=== PATIENT | male | born 1935 | race Caucasian/White ===

== ENCOUNTER 2019-03-04 09:04 | Outpatient (CLI) | payer MEDICARE, OTHER ==
[2019-03-04 13:02] LABS: Hemoglobin 15.2 g/dL (14.0-18.0); Mean Corpuscular HGB CONC 33.7 g/dL (32.0-36.0); Mean Corpuscular Hemoglobin 33.1 pg (27.0-31.0); Mean Corpuscular Volume 98.2 fL (78.0-98.0); Platelet Count 139 thou/uL (130-400); RBC Distribution Width 13.6 % (11.5-14.5); White Blood Cell (WBC) Count 5.3 thou/uL (4.8-10.8)
[2019-03-04 13:21] LABS: Anion Gap 12 mmol/L (10-20); BUN (Urea Nitrogen) 21 mg/dL (8.4-25.7); Calc. Creatinine Clearance 0 mL/min (70-130); Calcium 9.1 mg/dL (7.8-10.44); Carbon Dioxide 23 mmol/L (23-31); Chloride 110 mmol/L (98-107); Estimated GFR-MDRD 67; Glucose 102 mg/dL (83-110); Potassium 4.3 mmol/L (3.5-5.1); Sodium 141 mmol/L (136-145)
== END 2019-03-04 09:05 | disposition home or self-care (01) ==
LOC: LABBT 09:04
PROVIDERS: ATTEND Thoracic Surgery (Cardiothoracic Vascular Surgery)
DX: Z01.812 Encounter for preprocedural laboratory examination (principal); I25.10 Atherosclerotic heart disease of native coronary artery without angina pectoris
CPT/HCPCS: 80048; 85027; 86850; 86900; 86901

== ENCOUNTER 2019-03-04 12:00 | Inpatient (IN) | payer MEDICARE, OTHER ==
[2019-03-05] MEDS ORDERED: Albumin 5% 500 ML ONE (06:28)
[2019-03-05] MEDS ORDERED: Midazolam HCl 5 mg/5 ml Vial ONE (06:39)
[2019-03-05] MEDS ORDERED: Fentanyl 250 MCG/5 ML VIAL ONE (06:39)
[2019-03-05] MEDS ORDERED: Heparin 10,000 UNITS/1 ML VIAL 30,000 UNITS in Sodium Chloride 0.9% 1,000 ML IVPB SCH (06:45)
[2019-03-05] MEDS ORDERED: Phenylephrine HCL 10 MG/ML VIAL ONE ×2 (08:52→13:07)
[2019-03-05] MEDS ORDERED: Insulin Regular 300 UNITS/3 ML VIAL ONE (09:53)
[2019-03-05] MEDS ORDERED: Rocuronium Bromide 10 MG/ML (10ML VIAL) ONE ×2 (10:41→10:53)
[2019-03-05] MEDS ORDERED: Magnesium 5 GM/10 ML VIAL ONE (10:41)
[2019-03-05] MEDS ORDERED: Protamine Sulfate 250 MG/25 ML VIAL ONE (10:41)
[2019-03-05] MEDS ORDERED: Aminocaproic Acid 5 GM/20 ML VIAL ONE (10:41)
[2019-03-05] MEDS ORDERED: Lidocaine 2% PF 100 mg/5 ml Syringe ONE (10:41)
[2019-03-05] MEDS ORDERED: Heparin 5,000 UNITS/ML VIAL ONE (10:41)
[2019-03-05] MEDS ORDERED: Papaverine 60 MG/2 ML VIAL ONE (10:41)
[2019-03-05] MEDS ORDERED: PHENYLEPHRINE-NS 100 MCG/ML 10 ML SYRINGE ONE ×2 (10:41→10:53)
[2019-03-05] MEDS ORDERED: Calcium Chloride 1 GM/10 ML Abboject SYRINGE ONE (10:41)
[2019-03-05] MEDS ORDERED: Glycopyrrolate 0.2 MG/ML 5 ML SYRINGE ONE (10:41)
[2019-03-05] MEDS ORDERED: Norepinephrine 4 MG/4 ML VIAL ONE (10:41)
[2019-03-05] MEDS ORDERED: Cardioplegic Soln 1,000 ML BAG ONE (10:41)
[2019-03-05] MEDS ORDERED: Sodium Bicarb 50 MEQ/50 ML VIAL ONE (10:41)
[2019-03-05] MEDS ORDERED: Thrombin 5000 UNITS/5 ML VIAL ONE (10:41)
[2019-03-05] MEDS ORDERED: PROPOFOL 200 MG/20 ML VIAL ONE ×2 (10:41→10:53)
[2019-03-05] MEDS ORDERED: Heparin 30,000 units/30 ml VIAL ONE ×2 (10:41)
[2019-03-05] MEDS ORDERED: Potassium Chloride 60 MEQ/30 ML VIAL ONE (10:41)
[2019-03-05] MEDS ORDERED: Vecuronium 10 MG VIAL ONE (10:41)
[2019-03-05] MEDS ORDERED: Nitroglycerin 50 MG/250 ML BOT ONE (10:41)
[2019-03-05] MEDS ORDERED: Mannitol 12.5 GM/50 ML ONE (10:41)
[2019-03-05] MEDS ORDERED: ePHEDrine 50 MG/ML VIAL ONE (10:41)
[2019-03-05] MEDS ORDERED: SUGAMMADEX SODIUM 200 MG/2 ML VIAL ONE (11:27)
[2019-03-05] MEDS ORDERED: Norepinephrine 8 MG/0.9% NS 250 ML IVPB PRN ×2 (12:09→15:09)
[2019-03-05] MEDS ORDERED: HYDROcodone/Acetaminophen 5/325 mg Tablet PO PRN ×2 (12:09)
[2019-03-05] MEDS ORDERED: Acetaminophen 325 MG TAB PO PRN (12:09)
[2019-03-05] MEDS ORDERED: Promethazine HCl 25 MG/ML VIAL IM PRN (12:09)
[2019-03-05] MEDS ORDERED: niCARdipine 25 MG in Sodium Chloride 0.9% 250 ML 240 ML IVPB PRN (12:09)
[2019-03-05] MEDS ORDERED: Bisacodyl 5 MG TAB PO PRN (12:09)
[2019-03-05] MEDS ORDERED: Nitroglycerin 50 MG/250 ML BOT 250 ML IVPB PRN (12:09)
[2019-03-05] MEDS ORDERED: hydrALAZINE 20 MG/ML VIAL SLOW IVP PRN (12:09)
[2019-03-05] MEDS ORDERED: Post-Op Insulin Drip Protocol IVPB ONE (12:09)
[2019-03-05] MEDS ORDERED: Fentanyl 100 MCG/2 ML VIAL SLOW IVP PRN ×2 (12:09)
[2019-03-05] MEDS ORDERED: Hetastarch 6% 500 ML 500 ML IVPB PRN (12:09)
[2019-03-05] MEDS ORDERED: Morphine 2 MG/ML SYRINGE SLOW IVP PRN ×2 (12:09→14:58)
[2019-03-05] MEDS ORDERED: Ondansetron PF 4 MG/2 ML Vial IVP PRN (12:09)
[2019-03-05] MEDS ORDERED: Mag-Al 1200 mg/1200 mg/30 ML UDCUP PO PRN (12:09)
[2019-03-05] MEDS ORDERED: Guaifenesin DM 100-10/5 ML UDCUP PO PRN (12:09)
[2019-03-05] MEDS ORDERED: Bisacodyl 10 MG SUPP PR PRN (12:09)
[2019-03-05] MEDS ORDERED: DOPamine 400 MG/D5W 250 ML 250 ML IVPB PRN (12:09)
[2019-03-05] MEDS ORDERED: Fentanyl 100 MCG/2 ML VIAL SLOW IVP SCH (12:15)
[2019-03-05] MEDS ORDERED: Magnesium 2 GM/50 ML 2 GM in Premix Bag 1 BAG IVPB SCH (12:15)
[2019-03-05] MEDS ORDERED: Midazolam HCl 2 mg/2 ml Vial IVP SCH (12:15)
[2019-03-05] MEDS ORDERED: Dextrose 50% Abboject 50 ML SYRINGE SLOW IVP PRN (12:21)
[2019-03-05] MEDS ORDERED: Dextrose 5% in Water 1,000 ML IV PRN (12:21)
[2019-03-05] MEDS ORDERED: HUMULIN R 100 UNITS in Sodium Chloride 0.9% 100 ML IVPB SCH (12:21)
[2019-03-05] MEDS ORDERED: Midazolam HCl 2 mg/2 ml Vial ONE (12:26)
[2019-03-05 12:30] LABS: #Eosinphils 0.1 thou/uL (0.0-0.7); #Lymphocytes 1.6 thou/uL (1.20-3.40); #Monocytes 1.2 thou/uL (0.11-0.59); #Neutrophils 12.4 thou/uL (1.40-6.50); %Basophils 0.1 % (0.0-1.0); %Eosinophils 0.5 % (0.0-10.0); %Lymphocytes 10.5 % (21.0-51.0); %Monocytes 7.6 % (0.0-10.0); %Neutrophils 81.4 % (42.0-75.0); Hemoglobin 11.7 g/dL (14.0-18.0); Mean Corpuscular HGB CONC 33.2 g/dL (32.0-36.0); Mean Corpuscular Volume 99.2 fL (78.0-98.0); Platelet Count 99 thou/uL (130-400); RBC Distribution Width 13.6 % (11.5-14.5); Red Blood Cell (RBC) Count 3.56 mill/uL (4.70-6.10); White Blood Cell (WBC) Count 15.2 thou/uL (4.8-10.8)
[2019-03-05 12:36] LABS: INR-International Normal Ratio 1.3; Prothrombin Time 16.2 SEC (12.0-14.7)
[2019-03-05 12:37] LABS: PTT 29.5 SEC (22.9-36.1)
[2019-03-05] MEDS: CEFAZOLIN 2 GM in Premix Bag 1 BAG IVPB SCH ×2 (12:45→20:33)
[2019-03-05] MEDS: Ketorolac Tromethamine 30 MG/ML VIAL IVP SCH ×3 (12:46→23:33)
--- NOTE | 2019-03-05 12:48 | RAD ---
RADIOGRAPH CHEST 1 VIEW: DATE: 03/05/2019 HISTORY: Status post coronary bypass graft surgery in 83-year-old male FINDINGS: Limited evaluation because of hypoinflated lungs and patient body rotation to left. There is no airsp soun density, pulmonary edema, or pneumothorax. The lateral costophrenic angles are not effaced. Right subclavian central vascular catheter with distal tip overlying SVC/right atrial junction. Media stinal chest tube. Sternotomy wires. Bibasilar chest tubes. IMPRESSION: 1. Status post coronary artery bypass graft surgery. 2. Right central line, and bibasilar and midline chest tubes.. 3. No acute pulmonary findings.
[2019-03-05] MEDS ORDERED: PROPOFOL 20 ML ONE (12:50)
[2019-03-05] MEDS ORDERED: Fentanyl 100 MCG/2 ML VIAL ONE (13:04)
[2019-03-05] MEDS ORDERED: Dexmedetomidine 200 MCG/2 ML VIAL ONE (13:04)
[2019-03-05 13:08] LABS: Anion Gap 11 mmol/L (10-20); BUN (Urea Nitrogen) 29 mg/dL (8.4-25.7); Calc. Creatinine Clearance 76 mL/min (70-130); Calcium 7.6 mg/dL (7.8-10.44); Carbon Dioxide 21 mmol/L (23-31); Chloride 115 mmol/L (98-107); Estimated GFR-MDRD 71; Glucose 155 mg/dL (83-110); Potassium 4.5 mmol/L (3.5-5.1); Sodium 142 mmol/L (136-145)
[2019-03-05] MEDS ORDERED: CEFAZOLIN 1 GM VIAL ONE (13:19)
[2019-03-05] MEDS ORDERED: Fentanyl BOLUS 250 ML IVPB PRN (14:58)
[2019-03-05] MEDS ORDERED: fentaNYL Citrate/PF 2,000 MCG in Sodium Chloride 0.9% 60 ML IV SCH (14:58)
[2019-03-05] MEDS ORDERED: Propofol 1,000 MG/100 ML VIAL IV PRN (14:58)
[2019-03-05] MEDS ORDERED: DISCONTINUE PREVIOUS NARCOTIC PAIN MEDICATIONS AND BENZODIAZEPINES FS SCH (14:58)
[2019-03-05] MEDS ORDERED: Propofol BOLUS 1,000 MG/100 ML VIAL IV PRN (14:58)
[2019-03-05] MEDS ORDERED: Lorazepam 2 MG/ML VIAL SLOW IVP PRN (14:58)
[2019-03-05] MEDS ORDERED: Ventilator Sedation Protocol 1 EACH FS SCH (15:00)
[2019-03-05] MEDS ORDERED: Albumin 5% 250 ML ONE (15:07)
[2019-03-05] MEDS: Lactated Ringer's 1,000 ML IV SCH (15:19)
--- NOTE | 2019-03-05 15:19 | RAD ---
Exam: Chest one view HISTORY:Status post open heart surgery Comparison: 03/05/2019 at 12:28 PM FINDINGS: Cardiac silhouette:Enlarged cardiac silhouette. Atherosclerosis of the aorta Pulmonary vessels: Slightly prominent. Costophrenic angles: Clear Lines and tubes: Endotracheal tube at the level of clavicles. Right-sided central venous catheter and sternotomy wires are noted. There is a right-sided chest tube. LUNGS: Patchy interstitial opacities without consolidation. Pneumothorax: None Osseous abnormalities: None IMPRESSION: 1. Findings compatible with recent open.
[2019-03-05 15:32] LABS: Actual Bicarbonate (HCO3a) 21.6 mEq/L (22-28); Base Excess (BEa) -4.7 mEq/L (-2.0 to +3.0); CO2 Tension 45.4 mmHg (35.0-45.0); Calcium, Ionized 1.04 mmol/L (1.12-1.30); Carboxyhemoglobin (COHb) 0.9 gm% (0.0-3.0); O2 Tension (PaO2) 86.9 mmHg (> 60.0); Potassium - ABG Lab 4.26 mmol/L (3.70-5.30)
[2019-03-05 15:45] LABS: Puncture Site LINE
--- NOTE | 2019-03-05 16:03 | OP ---
DATE OF PROCEDURE: 03/05/2019 PREOPERATIVE DIAGNOSIS: Hemorrhage. POSTOPERATIVE DIAGNOSIS: Hemorrhage. PROCEDURES PERFORMED: Mediastinal exploration, oversew of bleeding site. CLIENT SUPPORT ADMINISTRATOR: Shamir. TRANSFUSION: One platelet pack, 2 units of fresh frozen. DESCRIPTION OF PROCEDURE: After adequate general endotracheal anesthesia had once been obtained, the patient was prepped and draped and his sternotomy incision open. Clots were evacuated and the heart was elevated and there was bleeding from the distal OM graft to OM anastomosis. This had been the site of the bleeding site prior to leaving the room that had been secured and had no further bleeding. Pmlavu-ir-hzsay suture was then used to control the bleeding and following this, the areas were all thoroughly inspected and irrigated. Right coronary graft lie nicely with good pulse. The AVILA graft was a good pulse and the OM1 vein graft had a good pulse. I am not sure if the OM2 graft was patent or not. In any event, the sternum was reapproximated with combination of #7 interrupted wire and zip ties using vancomycin paste on the sternal edges. Subcutaneous tissue and skin were closed in layers after further irrigation and the patient is to be taken to the ICU in guarded condition. Job ID: [id number]
[2019-03-05] MEDS ORDERED: Norepinephrine 8 MG in Dextrose 5% in Water 242 ML IVPB PRN (16:30)
--- NOTE | 2019-03-05 17:28 | OP ---
DATE OF PROCEDURE: 03/05/2019 PREOPERATIVE DIAGNOSIS: Coronary artery disease. POSTOPERATIVE DIAGNOSIS: Coronary artery disease. PROCEDURE PERFORMED: Coronary artery bypass graft x4; good quality AVILA to a 2 mm LAD; saphenous vein that required multiple Prolene sutures for repair to a 1.5 mm PDA, 1.5 mm OM1, and 1.25 mm OM2; ligation of left atrial appendage. ETL APPLICATION DEVELOPER: John Mcdermott MD DESCRIPTION OF PROCEDURE: After adequate anesthesia had been obtained, the patient was prepped and draped. Median sternotomy was performed while an endovascular vein harvest on the left greater saphenous vein was carried out. After opening the sternum, the right pleura had been entered and was partially closed. Following which, the left internal mammary artery was harvested. After heparinization, the mammary was divided distally and passed posterior to the thymus gland. Aorta and right atrium were cannulated. At that point, the operation was somewhat delayed due to multiple repairs needed to be carried out on the vein. After this had been completed, the patient was started on cardiopulmonary bypass and vessels were inspected. It should be noted that while waiting for the saphenous vein graft to be prepared, the patient had several episodes of spontaneous supraventricular tachycardia. Because of this, it was elected to go ahead and ligate his left atrial appendage, and after a liter of cold blood cardioplegia had been given through the aortic root after aortic cross-clamping, the left atrial appendage was oversewn with a double layer of 4-0 Prolene at its base. The patient was noted to be in fibrillation after this and an additional 300 mL of cold blood cardioplegia was given. Following this, the main right coronary artery was examined and was heavily calcified and a spot on the PDA was then chosen and it was opened. There was rather vigorous bleeding through this arteriotomy making the distal anastomosis somewhat tedious, but this was completed. Following this, attention was turned to the OM1 and OM2 and both of these had end-to-side anastomosis completed. Finally, a AVILA to LAD was completed and the cross-clamp was removed. The partial occluding clamp was placed and two proximal anastomosis were performed of the aortic root. The partial occluding clamp was removed and rings were placed around the two proximal anastomosis. The OM2 vein graft was then anastomosed to the OM1 vein graft about 3 cm from the aortic root. Following this, there was a rather vigorous bleeding site on the OM2 suture line near the heel distal anastamoses and this was repaired with a mbxjwh-sw-xgmfj suture. There was diffuse oozing from the distal PDA site and two raylra-kb-nyfah sutures were placed here for control. The patient had rather significant oozing in the chest at that time and was therefore ventilated, weaned from cardiopulmonary bypass, cannula was removed, and protamine was given systemically. Aortic cannulation site was secured with a Prolene suture. Following this, inspection of the distal anastomosis revealed no further bleeding. Mediastinal and bilateral pleural drains were placed, following which the sternum was reapproximated with #7 interrupted wire. Vancomycin paste was placed on the sternal edges, platelet rich blood, and platelet poor plasma. The patient is to be taken to the ICU in guarded condition. Job ID: [id number] MTDD
--- NOTE | 2019-03-05 18:13 | PRG ---
DATE OF SERVICE: 03/05/2019 PRIMARY POLE SANDER OPERATOR: Dr. Yao Rivera. HISTORY OF PRESENT ILLNESS: Mr. Fer Amezcua is a pleasant 83-year-old gentleman with moderately depressed left ventricular function and multivessel coronary artery disease, who underwent bypass surgery. The patient did have to go back to the operating room earlier this afternoon for mediastinal exploration and oversew of bleeding site, but the patient is doing well now. He is currently sedated, is on the ventilator. OBJECTIVE: VITAL SIGNS: His blood pressure is 120 systolic, pulse is in the 90 range and sinus. LUNGS: Clear. CARDIAC: Normal S1 and normal S2. ASSESSMENT: 1. Status post coronary artery bypass grafting with subsequent reoperation and repair of bleeding site, bypass x4. 2. Ligation of left atrial appendage. PLAN: Continue current medical regimen. Dr. Rivera to see the patient tomorrow morning. Job ID: [id number]
[2019-03-05 18:28] LABS: Hemoglobin 9.5 g/dL (14.0-18.0)
[2019-03-05 18:38] LABS: Potassium 4.6 mmol/L (3.5-5.1)
[2019-03-05] MEDS: Atorvastatin Calcium 20 MG TAB PO SCH (20:33)
[2019-03-05] MEDS: Famotidine/PF 20 mg/2ml Vial SLOW IVP SCH (20:33)
--- NOTE | 2019-03-05 23:34 | CON ---
DATE OF CONSULTATION: 03/05/2019 SERVICE: Pulmonary Medicine. REASON FOR CONSULTATION: ICU patient. HISTORY OF PRESENT ILLNESS: The patient is an 83-year-old white male with past medical history significant for coronary artery disease. He presented to the hospital for an elective coronary artery bypass graft surgery. He cannot provide me any additional elements of the history. In the postanesthesia care unit, he was thrashing about and ultimately, opened up an artery. He started bleeding fairly significantly. He had to be taken back to the operating room for a redo sternotomy. The bleeding lesion was identified and corrected. He was subsequently closed the second time. He is going to be left on mechanical ventilation. His oxygen requirements are quite impressive currently. That being said, the chest x-ray really does not look that abnormal. His oxygen requirements are improving as time goes by. Hemodynamically, the patient remains stable on just a little bit of Levophed. PAST MEDICAL HISTORY: 1. Polycythemia. 2. Hypertension. 3. Peripheral vascular disease. 4. Coronary artery disease. 5. Chronic low back pain. PAST SURGICAL HISTORY: 1. Left knee replacement. 2. Appendectomy. 3. Cataract surgery, bilateral. 4. Left 4th finger partial amputation secondary to crush. 5. Aortic aneurysm repair. 6. Coronary bypass graft. SOCIAL HISTORY: Negative for alcohol, tobacco, or illicit drug use currently. He is retired. He previously operated heavy equipment. FAMILY HISTORY: Noncontributory. ALLERGIES: NO KNOWN DRUG ALLERGIES. MEDICATIONS: List of his inpatient medications was reviewed. No specific updates were made at this time. I have also reviewed his outpatient medication. Many of these things are supplements. REVIEW OF SYSTEMS: Cannot be obtained as the patient is currently intubated and sedated. PHYSICAL EXAMINATION: VITAL SIGNS: Afebrile, pulse 86, blood pressure 131/58, respirations 15, saturations 98% on 71% FiO2. PEEP of 5. HEENT: Normocephalic and atraumatic. Sclerae white. Conjunctivae pink. Oral mucosa is moist without lesions. LUNGS: Decent air entry. There is truthfully no wheezing, rhonchi, or crackles present. There is a slightly prolonged expiratory phase. HEART: Normal rate, regular. ABDOMEN: Soft, nontender, nondistended. Bowel sounds are positive. MUSCULOSKELETAL: No cyanosis or clubbing. There is no pitting in the bilateral lower extremities. The left leg is wrapped. : Mckeon catheter in place. NEUROLOGIC: Grossly nonfocal. He opens his eyes spontaneously, and attends. LABORATORY DATA: WBC 15.2, hemoglobin 11.7, platelets 99,000. INR 1.3. pH 7.30, pCO2 45, pO2 87, corresponding to a saturation of 95% at that time. Creatinine 1.01 and at baseline, chloride 115, sodium 142. Calcium 7.6. IMAGING: Chest x-ray demonstrates endotracheal tube roughly 2 to 3 cm above the level of the ismael. Sternotomy wires are noted. There is a right subclavian central venous catheter, which terminates in good position. Apparent right- sided thoracostomy tube and mediastinal drains are identified. Subtle pulmonary vascular congestion is noted. The right mid lung zone has decreased vascular markings. ASSESSMENT: 1. Acute hypoxic and hypercapnic respiratory failure. 2. Coronary artery disease, status post coronary artery bypass graft, postoperative day zero. 3. Acute blood loss anemia. DISCUSSION AND PLAN: I will schedule some nebulized medications. We will wean oxygen away through time as tolerated. Pulmonary/Critical Care will continue to follow along in this location. At this point, his high oxygen requirements precludes a spontaneous breathing trial and subsequent extubation. As such, we will keep the patient comfortable on propofol and fentanyl, if necessary. I will repeat an ABG tomorrow morning. Pulmonary/Critical Care will follow in this location. CRITICAL CARE TIME: 30 minutes. Job ID: [id number] MTDD
[2019-03-06] MEDS: Lactated Ringer's 1,000 ML IV SCH (00:55)
[2019-03-06 04:02] LABS: Anion Gap 10 mmol/L (10-20); BUN (Urea Nitrogen) 24 mg/dL (8.4-25.7); Calc. Creatinine Clearance 85 mL/min (70-130); Calcium 7.4 mg/dL (7.8-10.44); Carbon Dioxide 21 mmol/L (23-31); Chloride 114 mmol/L (98-107); Estimated GFR-MDRD 80; Glucose 136 mg/dL (83-110); Sodium 141 mmol/L (136-145)
[2019-03-06 04:09] LABS: #Lymphocytes 0.5 thou/uL (1.20-3.40); #Monocytes 0.7 thou/uL (0.11-0.59); #Neutrophils 6.1 thou/uL (1.40-6.50); %Basophils 0.1 % (0.0-1.0); %Eosinophils 0.1 % (0.0-10.0); %Lymphocytes 7.3 % (21.0-51.0); %Monocytes 9.6 % (0.0-10.0); %Neutrophils 82.9 % (42.0-75.0); Hemoglobin 8.2 g/dL (14.0-18.0); Mean Corpuscular HGB CONC 33.4 g/dL (32.0-36.0); Mean Corpuscular Hemoglobin 33.5 pg (27.0-31.0); Mean Platelet Volume 8.6 fL (7.4-10.4); Platelet Count 106 thou/uL (130-400); RBC Distribution Width 13.6 % (11.5-14.5); Red Blood Cell (RBC) Count 2.46 mill/uL (4.70-6.10); White Blood Cell (WBC) Count 7.4 thou/uL (4.8-10.8)
[2019-03-06] MEDS: Potassium Chloride 20 MEQ/100 ML PREMIX BAG IVPB PRN (04:25)
[2019-03-06] MEDS: Ketorolac Tromethamine 30 MG/ML VIAL IVP SCH ×3 (05:25→17:02)
[2019-03-06] MEDS: CEFAZOLIN 2 GM in Premix Bag 1 BAG IVPB SCH (05:26)
[2019-03-06 06:58] LABS: Base Excess (BEa) -2.5 mEq/L (-2.0 to +3.0); CO2 Tension 31.4 mmHg (35.0-45.0); Calcium, Ionized 1.03 mmol/L (1.12-1.30); Carboxyhemoglobin (COHb) 0.4 gm% (0.0-3.0); Hemoglobin (Hb) 8.7 g/dL (14.0-18.0); O2 Tension (PaO2) 106.6 mmHg (> 60.0); pH, Arterial 7.44 (7.35-7.45)
[2019-03-06 07:34] LABS: Puncture Site ALINE
--- NOTE | 2019-03-06 07:59 | RAD ---
XR Chest 1 View Portable History: Open heart surgery Comparison: Radiograph prior day Findings: Heart size is enlarged. Patient is intubated with endotracheal tube tip at level of the cla vicles. Subclavian central venous catheter tip sits at the inferior SVC. Mild portal venous congestion. Likely small effusions. Right thoracostomy drain and mediastinal drains persist. Impression: Similar examination of the chest.
[2019-03-06] MEDS: Famotidine/PF 20 mg/2ml Vial SLOW IVP SCH ×2 (08:56→21:41)
[2019-03-06] MEDS: Insulin Regular 300 UNITS/3 ML VIAL SC PRN ×2 (09:58→16:55)
--- NOTE | 2019-03-06 10:15 | PDOC.CTH ---
Cardiology Progress Note - Subjective The pt seen and examined. No overnight events. No cardiac complaints. - Objective Vital Signs Temp Pulse Resp BP Pulse Ox 03/06/19 08:00 98.2 F 91 L 03/06/19 06:49 91 147/52 H 03/06/19 06:00 98.5 F 18 03/06/19 05:00 98.7 F 03/06/19 04:00 98.9 F 17 03/06/19 03:00 98.7 F 03/06/19 02:00 98.8 F 16 03/06/19 01:47 101 H 119/58 L 03/06/19 01:00 99.0 F 03/06/19 00:00 98.2 F 03/05/19 23:54 15 Weight 214 lb 1.102 oz 03/05/19 03/06/19 03/07/19 06:59 06:59 06:59 Intake Total 3086.1 Output Total 2520 250 Balance 566.1 -250 - Physical Examination General/Neuro: alert & oriented x3 Neck: no JVD present Heart: RRR Abdomen: soft Extremities: other: (No edema; no bleeding from Sx site) - Telemetry Telemetry Rhythm: SR - Labs Result Diagrams: 03/06/19 11:58 03/06/19 03:30 - Assessment/Plan 1. CAD with s/p CABG x4 with AVILA-LAD, SVG-PDA, OM1, and OM2 with ELMER ligation on 03/05/2019 - s/p redo sternotomy on 03/05/2019; stable; will start Coreg 6.25mg BID from this PM; On statin and ASA 325mg qd 2. HTN - stable; 3. Polycythemia - 4. PVD - MAR reviewed pt. seen and eval. by me. Doing well post CABG. RRR. No complaints. Chest clear anteriorly. Chest tubes still in. gjmays Review of Systems - Review of Systems Constitutional: reports: weakness EENTM: reports: no symptoms reported Respiratory: reports: no symptoms reported Cardiac (ROS): reports: no symptoms reported ABD/GI: reports: no symptoms reported
[2019-03-06] MEDS: Aspirin 325 MG TAB PO SCH (10:16)
[2019-03-06 12:18] LABS: Hemoglobin 8.5 g/dL (14.0-18.0); Platelet Count 100 thou/uL (130-400)
[2019-03-06] MEDS ORDERED: Lactated Ringer's 1,000 ML IV SCH (12:18)
[2019-03-06] MEDS ORDERED: Calcium Gluconate 4.6 MEQ in Sodium Chloride 0.9% 100 ML IVPB SCH (12:30)
--- NOTE | 2019-03-06 12:35 | PRG ---
DATE OF SERVICE: 03/06/2019 SERVICE: Pulmonary Medicine. INTERVAL HISTORY: Overnight, the patient's oxygen requirements have improved dramatically. He is on mechanical ventilation currently. He denies any current fevers, chills, nausea, vomiting, or chest discomfort other than appropriate postop pain. His chest tube is putting out increasingly serous fluid. There has been no other changes to his condition otherwise. Hemodynamics have remained stable, and he has been weaned off pressors. PHYSICAL EXAMINATION: VITAL pulse: Afebrile, pulse 93, blood pressure 130/64, respirations 19, and saturation 95% on 40% FiO2. GENERAL: The patient is awake and alert. No apparent distress. LUNGS: Decent air entry. No crackles are appreciated. There is no prolonged expiratory phase or wheezing. HEART: Normal rate. Regular. ABDOMEN: Soft, nontender, and nondistended. Bowel sounds are positive. MUSCULOSKELETAL: No cyanosis or clubbing. There is trace pitting in the bilateral lower extremities. The left lower extremity is wrapped. GENITOURINARY: Mckeon catheter in place. NEUROLOGIC: Grossly nonfocal. LABORATORY DATA: WBC 7.4, hemoglobin 8.2, and platelets 106,000 and up- trending. INR 1.3. A pH 7.44, pCO2 of 31, pO2 of 106 on 40% FiO2 at that time. Basic metabolic profile is otherwise unremarkable. Bicarb is stable at 21, chloride is gently downtrending at 114. Calcium 7.4. IMAGING STUDIES: Chest x-ray demonstrates right-sided thoracostomy drains and mediastinal drains are in place. Small pleural effusions. Subclavian and central venous catheters are in good position. The endotracheal tube is in decent position. Overall, there has been no significant interval change. ASSESSMENT: 1. Acute hypoxic respiratory failure, improving. 2. Coronary artery disease, status post coronary artery bypass graft, postop day 1. 3. Acute blood loss anemia, stable. DISCUSSION AND PLAN: We will put the patient on a spontaneous breathing trial. If he meets criteria, extubation will be considered. I will give the patient a dose of calcium. Once he is extubated, we will begin our mobilization efforts. CRITICAL CARE TIME: 30 minutes. Job ID: [id number] MTDD
[2019-03-06] MEDS ORDERED: Fentanyl 100 MCG/2 ML VIAL ONE (14:29)
[2019-03-06] MEDS ORDERED: Fentanyl 100 MCG/2 ML VIAL SLOW IVP PRN ×2 (14:30→14:31)
[2019-03-06] MEDS ORDERED: HYDROcodone/Acetaminophen 5/325 mg Tablet PO PRN (14:31)
[2019-03-06] MEDS: HYDROcodone/Acetaminophen 5/325 mg Tablet PO PRN ×2 (15:23→19:28)
[2019-03-06] MEDS: Carvedilol 6.25 MG TAB PO SCH (17:09)
[2019-03-06] MEDS: Atorvastatin Calcium 20 MG TAB PO SCH (21:41)
[2019-03-07] MEDS: Ketorolac Tromethamine 30 MG/ML VIAL IVP SCH ×5 (00:27→23:21)
[2019-03-07] MEDS: HYDROcodone/Acetaminophen 5/325 mg Tablet PO PRN ×3 (02:26→19:50)
[2019-03-07 05:38] LABS: #Eosinphils 0.1 thou/uL (0.0-0.7); #Monocytes 0.8 thou/uL (0.11-0.59); #Neutrophils 5.3 thou/uL (1.40-6.50); %Basophils 0.2 % (0.0-1.0); %Eosinophils 1.5 % (0.0-10.0); %Lymphocytes 13.8 % (21.0-51.0); %Monocytes 10.7 % (0.0-10.0); %Neutrophils 73.8 % (42.0-75.0); Hemoglobin 8.1 g/dL (14.0-18.0); Mean Corpuscular HGB CONC 33.8 g/dL (32.0-36.0); Mean Corpuscular Hemoglobin 34.1 pg (27.0-31.0); Mean Platelet Volume 8.5 fL (7.4-10.4); Platelet Count 99 thou/uL (130-400); RBC Distribution Width 13.6 % (11.5-14.5); Red Blood Cell (RBC) Count 2.37 mill/uL (4.70-6.10); White Blood Cell (WBC) Count 7.1 thou/uL (4.8-10.8)
[2019-03-07 05:39] LABS: Anion Gap 9 mmol/L (10-20); BUN (Urea Nitrogen) 21 mg/dL (8.4-25.7); Calc. Creatinine Clearance 81 mL/min (70-130); Calcium 7.6 mg/dL (7.8-10.44); Carbon Dioxide 24 mmol/L (23-31); Chloride 110 mmol/L (98-107); Estimated GFR-MDRD 76; Glucose 109 mg/dL (83-110); Potassium 3.8 mmol/L (3.5-5.1); Sodium 139 mmol/L (136-145)
[2019-03-07] MEDS: Potassium Chloride 20 MEQ/100 ML PREMIX BAG IVPB PRN (06:19)
--- NOTE | 2019-03-07 08:26 | RAD ---
RADIOGRAPH CHEST 1 VIEW: DATE: 03/07/2019 TIME: 4:44 AM HISTORY: 83-year-old male status post CABG. COMPARISON: 03/06/2019 FINDINGS: Endotracheal tube and NG tube have been removed. Right subclavian central line remains. Bibasilar samantha st tubes remain. Mild, heterogeneously patchy, faint pulmonary densities remain at the lower lung zones. Upper lung zones are grossly clear. No pneumothorax. Sternotomy wires. No interval change in t he appearance of the lungs. IMPRESSION: 1. Status post extubation. 2. No other interval change. 3. No significant interval change in the mild pulmonary densities at the lung bases.
--- NOTE | 2019-03-07 08:34 | PRG ---
DATE OF SERVICE: 03/07/2019 SUBJECTIVE: His chest tube output is at 1800, remains bloody, but thin bloody fluid. He is up in the chair this morning without complaints. His laboratory values, his hemoglobin is relatively stable at 8 g and his chemistries are satisfactory. On exam, he complains of some chest discomfort with moving. He has no appetite. OBJECTIVE: VITAL SIGNS: The patient's blood pressure is 120 to 140. His heart rate is about 90, sinus rhythm. LUNGS: Clear to auscultation. His dressings are dry. ASSESSMENT AND PLAN: He is stable at this point and we will leave the chest tubes in another day. Job ID: [id number]
[2019-03-07] MEDS: Carvedilol 6.25 MG TAB PO SCH ×2 (09:06→17:18)
[2019-03-07] MEDS: Famotidine/PF 20 mg/2ml Vial SLOW IVP SCH ×2 (09:06→19:50)
[2019-03-07] MEDS: Aspirin 325 MG TAB PO SCH (09:07)
--- NOTE | 2019-03-07 10:01 | PRG ---
DATE OF SERVICE: 03/07/2019 SUBJECTIVE: This morning, he is better status post CABG. X-ray shows slight cephalization, but no shortness of breath. OBJECTIVE: VITAL SIGNS: Blood pressure 128/60 . CHEST: Minimal crackles. There are no wheezing. CARDIAC: Normal S1 and S2. No gallops. ABDOMEN: No masses. LABORATORY DATA: H and H are low 8 and 23 and platelet count is low 99,000. ASSESSMENT AND PLAN: Status post coronary artery bypass grafting, deconditioning, anemia, and thrombocytopenia. Continue observation in the ICU. Continue PT, supportive care. We will follow. Job ID: [id number]
--- NOTE | 2019-03-07 13:26 | PDOC.CTH ---
Cardiology Progress Note - Subjective Pt. seen and eval. by me. No complaints. Doing well post CABG. - Objective Vital Signs Temp BP Pulse Ox 03/07/19 11:00 98.6 F 03/07/19 09:06 128/68 03/07/19 07:29 98.5 F 97 Weight 213 lb 11.2 oz 03/06/19 03/07/19 03/08/19 06:59 06:59 06:59 Intake Total 3086.1 818 700 Output Total 2520 1860 1000 Balance 566.1 -1042 -300 - Physical Examination General/Neuro: alert & oriented x3 Neck: no JVD present Lungs: CTA, unlabored respirations Heart: RRR Abdomen: NT/ND, soft - Labs Result Diagrams: 03/07/19 04:16 03/07/19 04:16 - Assessment/Plan 1. CAD with s/p CABG x4 with AVILA-LAD, SVG-PDA, OM1, and OM2 with ELMER ligation on 03/05/2019 - s/p redo sternotomy on 03/05/2019; stable; will start Coreg 6.25mg BID from this PM; On statin and ASA 325mg qd 2. HTN - stable; 3. Polycythemia - 4. PVD - 5. Vicenta-op anemia. MAR reviewed
[2019-03-07 16:20] LABS: Hemoglobin 8.4 g/dL (14.0-18.0); Platelet Count 114 thou/uL (130-400)
[2019-03-07] MEDS: Atorvastatin Calcium 20 MG TAB PO SCH (19:51)
[2019-03-08] MEDS ORDERED: Amiodarone 150 MG, Admixture Fee 1 EACH in Dextrose 5% in Water 100 ML IVPB SCH (00:45)
[2019-03-08] MEDS: Amiodarone 450 MG, Admixture Fee 1 EACH in Dextrose 5% in Water 250 ML IVPB SCH ×2 (00:57→09:59)
[2019-03-08 04:49] LABS: #Eosinphils 0.1 thou/uL (0.0-0.7); #Monocytes 0.7 thou/uL (0.11-0.59); %Basophils 0.1 % (0.0-1.0); %Eosinophils 1.7 % (0.0-10.0); %Lymphocytes 15.1 % (21.0-51.0); %Monocytes 10.1 % (0.0-10.0); Hemoglobin 8.8 g/dL (14.0-18.0); Mean Corpuscular HGB CONC 33.7 g/dL (32.0-36.0); Mean Corpuscular Hemoglobin 33.6 pg (27.0-31.0); Mean Corpuscular Volume 99.7 fL (78.0-98.0); Mean Platelet Volume 8.3 fL (7.4-10.4); Platelet Count 118 thou/uL (130-400); RBC Distribution Width 13.4 % (11.5-14.5); Red Blood Cell (RBC) Count 2.62 mill/uL (4.70-6.10); White Blood Cell (WBC) Count 6.8 thou/uL (4.8-10.8)
[2019-03-08 05:06] LABS: Anion Gap 9 mmol/L (10-20); BUN (Urea Nitrogen) 21 mg/dL (8.4-25.7); Calc. Creatinine Clearance 78 mL/min (70-130); Calcium 8.3 mg/dL (7.8-10.44); Carbon Dioxide 25 mmol/L (23-31); Chloride 109 mmol/L (98-107); Estimated GFR-MDRD 72; Glucose 126 mg/dL (83-110); Sodium 139 mmol/L (136-145)
[2019-03-08] MEDS: Ketorolac Tromethamine 30 MG/ML VIAL IVP SCH ×2 (05:22→11:02)
[2019-03-08] MEDS: Carvedilol 6.25 MG TAB PO SCH ×2 (07:47→16:49)
[2019-03-08] MEDS: Potassium Chloride 20 MEQ/100 ML PREMIX BAG IVPB PRN (07:51)
--- NOTE | 2019-03-08 08:15 | RAD ---
EXAM: CHEST ONE VIEW HISTORY: Post open heart surgery. COMPARISON: 03/07/2019 FINDINGS: Right subclavian central venous catheter remains in place. Bilateral thoracostomy tubes are also agai n noted in place. No pneumothorax is visualized. Right lateral costophrenic angle is partially obscured. Lungs otherwise appear clear. Pulmonary vasculature is the upper limits of normal. Vascular calcifications are again seen in the thoracic aorta. Median sternotomy wires are again seen. No other interval change. IMPRESSION: 1. Lines and tubes are stable in position. Chest is not significantly changed when compared to prior study.
[2019-03-08] MEDS: Aspirin 325 MG TAB PO SCH (09:07)
[2019-03-08] MEDS: Famotidine/PF 20 mg/2ml Vial SLOW IVP SCH (09:07)
[2019-03-08] MEDS: HYDROcodone/Acetaminophen 5/325 mg Tablet PO PRN (10:07)
--- NOTE | 2019-03-08 12:21 | PDOC.CTH ---
Cardiology Progress Note - Subjective The pt seen and examined. No cardiac complaints. Post-op Afib for 6-7 hours this AM and converted back to SR this AM. - Objective Vital Signs Temp BP Pulse Ox 03/08/19 12:00 98.0 F 03/08/19 08:00 94 L 03/08/19 07:47 133/75 03/08/19 03:00 98.6 F Weight 213 lb 9 oz 03/07/19 03/08/19 03/09/19 06:59 06:59 06:59 Intake Total 818 1638 Output Total 1860 3180 915 Balance -8711 -1542 -915 - Physical Examination General/Neuro: alert & oriented x3 Neck: no JVD present Lungs: CTA Heart: RRR Abdomen: soft Extremities: other: (No edema) - Telemetry Telemetry Rhythm: SR - Labs Result Diagrams: 03/08/19 04:20 03/08/19 04:20 - Assessment/Plan 1. CAD with s/p CABG x4 with AVILA-LAD, SVG-PDA, OM1, and OM2 with ELMER ligation on 03/05/2019 - s/p redo sternotomy on 03/05/2019; stable;On Coreg 6.25mg BID, statin and ASA 325mg qd 2. Post-Op Afib from 0100 to 0730 on 03/08/2019 - remains in SR with Amiodarone drip; may change to PO from tomorrow; cont ASA 325mg qd 3. HTN - stable; 3. Polycythemia - 4. PVD - 5. Vicenta-op anemia. MAR reviewed Pt.seen and eval. by me.I agree with the A/P by the CAR UNLOADER. He denies cardiac complaints. Chest clear. RRR at this time.Continue amiodarone for 1 month post op. gjmays Review of Systems - Review of Systems Constitutional: reports: no symptoms reported EENTM: reports: no symptoms reported Respiratory: reports: no symptoms reported Cardiac (ROS): reports: no symptoms reported ABD/GI: reports: no symptoms reported : reports: no symptoms reported
[2019-03-08] MEDS ORDERED: Furosemide 40 MG TAB PO SCH (12:45)
[2019-03-08] MEDS ORDERED: HYDROcodone/Acetaminophen 5/325 mg Tablet PO PRN ×2 (15:25)
[2019-03-08] MEDS ORDERED: Nitroglycerin 0.4 MG TAB (25 Tab Bottle) SL PRN (15:25)
[2019-03-08] MEDS ORDERED: Bisacodyl 5 MG TAB PO PRN (15:25)
[2019-03-08] MEDS ORDERED: Ondansetron PF 4 MG/2 ML Vial IVP PRN (15:25)
[2019-03-08] MEDS ORDERED: Acetaminophen 325 MG TAB PO PRN (15:25)
[2019-03-08] MEDS ORDERED: Mag-Al 1200 mg/1200 mg/30 ML UDCUP PO PRN (15:25)
[2019-03-08] MEDS ORDERED: Fentanyl 100 MCG/2 ML VIAL SLOW IVP PRN (15:25)
[2019-03-08] MEDS ORDERED: Guaifenesin DM 100-10/5 ML UDCUP PO PRN (15:25)
[2019-03-08] MEDS ORDERED: Mineral Oil ENEMA PR PRN (15:25)
[2019-03-08] MEDS ORDERED: Meloxicam 7.5 MG TAB PO PRN (15:25)
[2019-03-08] MEDS ORDERED: Bisacodyl 10 MG SUPP PR PRN (15:25)
--- NOTE | 2019-03-08 15:28 | PQF ---
CLINICAL DOCUMENTATION IMPROVEMENT CLARIFICATION FORM: ICD-10 Updated PLEASE DO AN ADDENDUM TO THE PROGRESS NOTE WITH ANY DOCUMENTATION UPDATES OR ADDITIONS AND CARRY THROUGH TO DC SUMMARY. THANK YOU. DATE: 03/08/2019 ATTN: Dr. Mcdowell Please exercise your independent, professional judgment in responding to the clarification form. Clinical indicators are provided on the bottom of this form for your review Please check appropriate box(s): [ ] Hemorrhage is a complication of current/recent surgery [ ] Hemorrhage is not a complication of current/recent surgery [ ] Other diagnosis [ ] Unable to determine In addition, please specify: Present on Admission (POA): [ ] Yes [ ] No [ ] Unable to determine CLINICAL INDICATORS - SIGNS / SYMPTOMS / LABS Operative note 03/05: Hemorrhage. Clots were evacuated and the heart was elevated and there was bleeding from the distal OM graft to OM anastomosis. This had been the site of the bleeding site prior to leaving the room that had been secured and had not further bleeding. RISKS: 03/05 OP NOTE: CABG X4; good quality AVILA to a 2 mm LAD; Saphenous vein that required multiple prolene sutures for repair to a 1.5 mm PDA, 1.5 mm OM1, and 1.25 mm OM2; ligation of left atrial appendage. TREATMENT: 03/05 OP NOTE: Mediastinal exploration, oversew of bleeding site Order 03/05-03/06: Transfuse Blood Prods. transfuse platelets stat Thank you, Katelyn (This form is maintained as a part of the permanent medical record) 2014 [employer]. All Rights Reserved Katelyn Gary RN, BSN [email or web address] Office: [phone] [facility]
[2019-03-08] MEDS: Famotidine 20 MG TAB PO SCH (20:44)
[2019-03-08] MEDS: Atorvastatin Calcium 20 MG TAB PO SCH (20:44)
[2019-03-09] MEDS: Amiodarone 450 MG, Admixture Fee 1 EACH in Dextrose 5% in Water 250 ML IVPB SCH (01:15)
[2019-03-09] MEDS: Aspirin 325 mg Enteric Coated Tablet PO SCH (09:20)
[2019-03-09] MEDS: Potassium Chloride 10 MEQ TAB PO SCH (09:20)
[2019-03-09] MEDS: Famotidine 20 MG TAB PO SCH ×2 (09:20→21:34)
[2019-03-09] MEDS: Carvedilol 6.25 MG TAB PO SCH ×2 (09:20→18:24)
[2019-03-09] MEDS: Furosemide 40 MG TAB PO SCH (09:20)
[2019-03-09] MEDS ORDERED: Ketorolac Tromethamine 30 MG/ML VIAL IVP SCH (09:45)
--- NOTE | 2019-03-09 13:29 | PRG ---
DATE OF SERVICE: 03/09/2019 SUBJECTIVE: Mr. Amezcua was evaluated. His perioperative course has been reviewed. He says he is actually feeling quite well today. He is in no distress. His chest tubes are out. OBJECTIVE: VITAL SIGNS: Blood pressure 162/90, heart rate is 92, respiratory rate in the teens, oximetry is 92% on room air, blood pressure 151/75 earlier. LUNGS: Clear. HEART: Regular rhythm. S1, S2 are normal. ABDOMEN: Soft and nontender. EXTREMITIES: Without asymmetry or edema. LABORATORY DATA: Hemoglobin yesterday was 8.8. Electrolytes yesterday were unremarkable. IMPRESSION: 1. Status post coronary artery bypass grafting, clinically doing well. 2. Status post perioperative bleeding, requiring a redo sternotomy. 3. History of polycythemia. 4. History of hypertension. 5. History of aortic aneurysm repair in the past. Overall, he clinically looks better than I expected given his perioperative course. He is starting to ambulate, spend more time up in a chair. We will continue to follow. Job ID: [id number]
[2019-03-09] MEDS: Atorvastatin Calcium 20 MG TAB PO SCH (21:34)
[2019-03-09] MEDS: Amiodarone 200 MG TAB PO SCH (21:34)
[2019-03-10 06:20] VITALS: BMI 27.7
[2019-03-10] MEDS: Furosemide 40 MG TAB PO SCH (08:54)
[2019-03-10] MEDS: Carvedilol 6.25 MG TAB PO SCH ×2 (08:55→16:51)
[2019-03-10] MEDS: Amiodarone 200 MG TAB PO SCH ×3 (08:55→19:17)
[2019-03-10] MEDS: Potassium Chloride 10 MEQ TAB PO SCH (08:56)
[2019-03-10] MEDS: Famotidine 20 MG TAB PO SCH (08:56)
[2019-03-10] MEDS: Aspirin 325 mg Enteric Coated Tablet PO SCH (08:56)
--- NOTE | 2019-03-10 13:39 | PRG ---
DATE OF SERVICE: 03/10/2019 SUBJECTIVE: Mr. Amezcua has no new complaints. He says he is really starting to feel good. He has been out of bed and showered already when I saw him about 8:00 this morning. OBJECTIVE: VITAL SIGNS: He is afebrile, heart rate 82, respiratory rate 15, oximetry is 98% on room air, blood pressure 120/65. LUNGS: Clear. HEART: Regular rhythm. ABDOMEN: Soft and nontender. EXTREMITIES: Without asymmetry or significant edema. IMPRESSION: 1. Status post coronary artery bypass grafting. 2. Status post perioperative bleeding, required reoperation. 3. History of polycythemia ? sleep apnea. 4. History of hypertension. 5. History of aortic aneurysm repair in the past. Overall, he is stable. Probably follow him one more day, then sign off. Job ID: [id number]
[2019-03-10 15:59] VITALS: BP 142/66; TEMP 98.3
[2019-03-12 08:58] LABS: Actual Bicarbonate (HCO3a) 21.6 mEq/L (22-28); Analyzer IN Cardio OR; Base Excess (BEa) -5.2 mEq/L (-2.0 to +3.0); CO2 Tension 47.6 mmHg (35.0-45.0); Calcium, Ionized 1.02 mmol/L (1.12-1.30); Carboxyhemoglobin (COHb) 0.8 gm% (0.0-3.0); Hemoglobin (Hb) 11.1 g/dL (14.0-18.0); O2 Tension (PaO2) 93.2 mmHg (> 60.0); Potassium - ABG Lab 4.22 mmol/L (3.70-5.30); pH, Arterial 7.27 (7.35-7.45)
[2019-03-12 08:59] LABS: Actual Bicarbonate (HCO3a) 22.7 mEq/L (22-28); Analyzer IN Cardio OR; Base Excess (BEa) -2.8 mEq/L (-2.0 to +3.0); CO2 Tension 41.9 mmHg (35.0-45.0); Calcium, Ionized 1.16 mmol/L (1.12-1.30); Carboxyhemoglobin (COHb) 0.5 gm% (0.0-3.0); O2 Tension (PaO2) 394.7 mmHg (> 60.0); Potassium - ABG Lab 4.25 mmol/L (3.70-5.30); pH, Arterial 7.35 (7.35-7.45)
[2019-03-12 09:00] LABS: Actual Bicarbonate (HCO3a) 22.6 mEq/L (22-28); Analyzer IN Cardio OR; Base Excess (BEa) -3.6 mEq/L (-2.0 to +3.0); CO2 Tension 45.3 mmHg (35.0-45.0); Calcium, Ionized 1.05 mmol/L (1.12-1.30); Carboxyhemoglobin (COHb) 0.1 gm% (0.0-3.0); Hemoglobin (Hb) 11.1 g/dL (14.0-18.0); O2 Tension (PaO2) 471.9 mmHg (> 60.0); Potassium - ABG Lab 5.99 mmol/L (3.70-5.30); pH, Arterial 7.32 (7.35-7.45)
[2019-03-12 09:00] LABS: Actual Bicarbonate (HCO3a) 25.2 mEq/L (22-28); Analyzer IN Cardio OR; Base Excess (BEa) -2.8 mEq/L (-2.0 to +3.0); Calcium, Ionized 1.03 mmol/L (1.12-1.30); Carboxyhemoglobin (COHb) 0.3 gm% (0.0-3.0); Hemoglobin (Hb) 11.3 g/dL (14.0-18.0); Potassium - ABG Lab 5.27 mmol/L (3.70-5.30)
[2019-03-12 09:00] LABS: Actual Bicarbonate (HCO3a) 23.5 mEq/L (22-28); Analyzer IN Cardio OR; Base Excess (BEa) -3.8 mEq/L (-2.0 to +3.0); CO2 Tension 52.1 mmHg (35.0-45.0); Calcium, Ionized 1.16 mmol/L (1.12-1.30); Carboxyhemoglobin (COHb) 0.2 gm% (0.0-3.0); Hemoglobin (Hb) 13.7 g/dL (14.0-18.0); O2 Tension (PaO2) 412.1 mmHg (> 60.0); Potassium - ABG Lab 4.81 mmol/L (3.70-5.30); pH, Arterial 7.27 (7.35-7.45)
[2019-03-12 09:01] LABS: Actual Bicarbonate (HCO3a) 22.9 mEq/L (22-28); Analyzer IN Cardio OR; Base Excess (BEa) -2.8 mEq/L (-2.0 to +3.0); CO2 Tension 43.7 mmHg (35.0-45.0); Calcium, Ionized 1.19 mmol/L (1.12-1.30); Carboxyhemoglobin (COHb) 0.3 gm% (0.0-3.0); Hemoglobin (Hb) 10.7 g/dL (14.0-18.0); O2 Tension (PaO2) 489.7 mmHg (> 60.0); Potassium - ABG Lab 5.52 mmol/L (3.70-5.30); pH, Arterial 7.34 (7.35-7.45)
[2019-03-12 09:01] LABS: Actual Bicarbonate (HCO3a) 21.8 mEq/L (22-28); Analyzer IN Cardio OR; CO2 Tension 47.3 mmHg (35.0-45.0); Calcium, Ionized 1.11 mmol/L (1.12-1.30); Carboxyhemoglobin (COHb) 0.7 gm% (0.0-3.0); Hemoglobin (Hb) 12.3 g/dL (14.0-18.0); O2 Tension (PaO2) 225.5 mmHg (> 60.0); Potassium - ABG Lab 4.54 mmol/L (3.70-5.30); pH, Arterial 7.28 (7.35-7.45)
[2019-03-12 09:01] LABS: Actual Bicarbonate (HCO3v) 24 mEq/L (22-28); Analyzer IN Cardio OR; Base Excess -2.2 mEq/L (-2.0 to +3.0); Calcium, Ionized 1.04 mmol/L (1.16-1.32); Chloride (ABG LAB) 107 mmol/L (98-106); Hemoglobin (Hb) 10.9 g/dL (12.6-17.4); Potassium - ABG Lab 5.67 mmol/L (3.70-5.30); Sodium 136.3 mmol/L (133-146); pH (venous) 7.31 (7.32-7.43)
[2019-03-12 09:23] LABS: Puncture Site ALINE
[2019-03-12 09:24] LABS: Puncture Site ALINE
[2019-03-12 09:24] LABS: Puncture Site ALINE
[2019-03-12 09:26] LABS: Puncture Site ALINE
[2019-03-12 09:27] LABS: pH, Arterial 7.24 (7.35-7.45)
[2019-03-12 09:28] LABS: CO2 Tension 60.1 mmHg (35.0-45.0); O2 Tension (PaO2) 552.4 mmHg (> 60.0); Puncture Site ALINE
[2019-03-12 09:29] LABS: Puncture Site ALINE
[2019-03-12 09:29] LABS: Puncture Site ALINE
== END 2019-03-10 19:20 | disposition home or self-care (01) | DRG 228 ==
LOC: SURG A 03-05 05:56 → CCU 03-05 11:47 → 2NO 03-08 21:22
PROVIDERS: ADMIT Thoracic Surgery (Cardiothoracic Vascular Surgery); ATTEND Thoracic Surgery (Cardiothoracic Vascular Surgery)
PROC: 02100Z9 Bypass Coronary Artery, One Artery from Left Internal Mammary, Open Approach (ICD-10-PCS; principal; 2019-03-05)
PROC: 02Q00ZZ Repair Coronary Artery, One Artery, Open Approach (ICD-10-PCS; 2019-03-05)
PROC: 021209W Bypass Coronary Artery, Three Arteries from Aorta with Autologous Venous Tissue, Open Approach (ICD-10-PCS; 2019-03-05)
PROC: 06BQ4ZZ Excision of Left Saphenous Vein, Percutaneous Endoscopic Approach (ICD-10-PCS; 2019-03-05)
PROC: 02L70ZK Occlusion of Left Atrial Appendage, Open Approach (ICD-10-PCS; 2019-03-05)
PROC: 5A1221Z Performance of Cardiac Output, Continuous (ICD-10-PCS; 2019-03-05)
DX: I25.10 Atherosclerotic heart disease of native coronary artery without angina pectoris (principal); J96.01 Acute respiratory failure with hypoxia; I97.411 Intraoperative hemorrhage and hematoma of a circulatory system organ or structure complicating a cardiac bypass; D62 Acute posthemorrhagic anemia; I10 Essential (primary) hypertension; I71.4 Abdominal aortic aneurysm, without rupture; I25.84 Coronary atherosclerosis due to calcified coronary lesion; I73.9 Peripheral vascular disease, unspecified; D75.1 Secondary polycythemia; M54.5 Low back pain; G89.29 Other chronic pain; Z79.82 Long term (current) use of aspirin; Z96.652 Presence of left artificial knee joint
CPT/HCPCS: 36415; 36416; 36430; 71045; 80048; 82805; 82947; 85025; 85027; 85610; 85730; 86850; 86900; 86901; 93005; 93010; 93798; 94002; 94003; 94150; 94660; J0282; J0690; J1642; J1644; J1815; J1885; J2001; J2150; J2250; J2270; J2370; J2440; J2704; J2720; J3010; J3370; J3475; J3480; J3490; J7050; J7070; P9035; P9045; P9059; S0017; S0028

== ENCOUNTER 2020-07-07 11:41 | Outpatient (CLI) | payer MEDICARE, OTHER ==
[~2020-07-07 11:41] MED LIST: Iopamidol 370 76% 100 ML VIAL ONE
--- NOTE | 2020-07-07 13:27 | CT ---
CT angiogram of the abdomen and pelvis with and without contrast: 07/07/2020 COMPARISON: 04/27/2020 HISTORY: Abdominal aortic aneurysm status post endovascular repair TECHNIQUE: Axial CT imaging at 3 mm intervals from lung bases through pubic symphysis with and withou t IV contrast using CT angiogram protocol. Coronal and sagittal 3-D reformatted imaging obtained FINDINGS: Midline sternotomy wires are present. Imaged lung bases demonstrate no acute findings. No f ree intraperitoneal air or fluid. There is an aortobifemoral endograft present, which demonstrates a stable configuration when compared to the prior CT exam. This is treating an infrarenal abdominal aortic aneurysm. The aneurysm sac on noncontrast enhanced imaging measures 5.2 cm AP dimension and 5.3 cm transverse dimension, previou sly measuring 5.3 x 5.2 cm, thus unchanged. Arterial dominant phase imaging of the liver and spleen grossly unremarkable. The gallbladder, pancre as, and adrenal glands are unremarkable. Numerous prominent bilateral renal cysts are noted. There is a punctate nonobstructing stone noted wi thin the midpole of the right kidney. The prostate gland is prominent and contains dystrophic calcification. There are a few scattered diverticula within the descending colon. No evidence for bowel inflammatory change or obstruction. No abdominal or pelvic lymphadenopathy is noted. 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 The superior mesenteric artery is unremarkable. 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 The re is stable multifocal mild stenosis in the mid left renal artery. The bilateral common iliac arteries appear patent. There are scattered areas of atherosclerotic calci fication involving otherwise unremarkable internal iliac arteries. The external iliac artery, common femoral artery, and visualized portions of bilateral profunda and superficial femoral arteries appear patent. No lymphadenopathy is present within the abdomen/pelvis. Review of the osseous structures demonstrates multilevel lower lumbar spine degenerative change, most prominent at the L4-5 and L5-S1 levels. No worrisome lytic or blastic bone lesions. IMPRESSION: Stable CT angiogram of the abdomen/pelvis. No CT evidence for endoleak. Aortobifemoral by pass graft appears unchanged.
== END 2020-07-07 11:42 | disposition home or self-care (01) ==
LOC: BICCT 11:41
PROVIDERS: ATTEND Thoracic Surgery (Cardiothoracic Vascular Surgery)
DX: I71.4 Abdominal aortic aneurysm, without rupture (principal); Z95.828 Presence of other vascular implants and grafts
CPT/HCPCS: 74174; 82565; Q9967

== ENCOUNTER 2022-07-09 05:00 | Inpatient (IN) | payer MEDICARE ==
[2022-07-09] MEDS ORDERED: FENTANYL 50 MCG/ML 1 ML VIAL ONE ×2 (05:14→06:04)
[2022-07-09 05:49] LABS: #Lymphocytes 0.9 thou/uL (1.20-3.40); #Monocytes 0.5 thou/uL (0.11-0.59); #Neutrophils 8.2 thou/uL (1.40-6.50); %Basophils 0.1 % (0.0-1.0); %Eosinophils 0.3 % (0.0-10.0); %Lymphocytes 9.4 % (21.0-51.0); %Monocytes 5.6 % (0.0-10.0); %Neutrophils 84.7 % (42.0-75.0); Hemoglobin 11.1 g/dL (14.0-18.0); Mean Corpuscular HGB CONC 32.6 g/dL (32.0-36.0); Mean Corpuscular Hemoglobin 33.4 pg (27.0-31.0); Mean Platelet Volume 8.3 fL (7.4-10.4); Platelet Count 143 thou/uL (130-400); RBC Distribution Width 13.7 % (11.5-14.5); Red Blood Cell (RBC) Count 3.33 mill/uL (4.70-6.10); White Blood Cell (WBC) Count 9.7 thou/uL (4.8-10.8)
[2022-07-09 05:57] LABS: Prothrombin Time 13.3 sec (12.0-14.7)
[2022-07-09 06:02] LABS: ALT (SGPT) 17 U/L (8-55); AST (SGOT) 20 U/L (5-34); Albumin 3.5 g/dL (3.4-4.8); Alkaline Phosphatase 64 U/L (40-110); Anion Gap 11 mmol/L (10-20); BUN (Urea Nitrogen) 18 mg/dL (8.4-25.7); Calc. Creatinine Clearance 0 mL/min (70-130); Calcium 8.7 mg/dL (7.8-10.44); Carbon Dioxide 23 mmol/L (23-31); Chloride 107 mmol/L (98-107); Estimated GFR 84; Globulin 2.1 g/dL (2.4-3.5); Glucose 153 mg/dL (83-110); Lipase 133 U/L (8-78); Potassium 3.8 mmol/L (3.5-5.1); Protein, Total 5.6 g/dL (5.8-8.1); Sodium 137 mmol/L (136-145)
[2022-07-09] MEDS ORDERED: Lidocaine 1% MPF 2 ML VIAL ONE (07:38)
[2022-07-09] MEDS ORDERED: Lactated Ringer's 1,000 ML IV SCH (09:15)
[2022-07-09] MEDS ORDERED: CEFAZOLIN 2 GM in Sodium Chloride 0.9% 100 ML IVPB SCH (09:15)
[2022-07-09] MEDS ORDERED: Protamine Sulfate 50 MG/5 ML VIAL ONE (09:17)
[2022-07-09] MEDS ORDERED: Heparin 5,000 UNITS/ML VIAL ONE (09:17)
[2022-07-09] MEDS ORDERED: Heparin 10,000 UNITS/ 10 ML VIAL ONE (09:17)
[2022-07-09] MEDS ORDERED: fentaNYL PF 100 MCG/2 ML SYRINGE ONE (09:38)
[2022-07-09] MEDS ORDERED: Calcium Chloride 1 GM/10 ML Abboject SYRINGE ONE (09:50)
[2022-07-09] MEDS ORDERED: PHENYLEPHRINE-NS 100 MCG/ML 10 ML SYRINGE ONE (09:50)
[2022-07-09] MEDS ORDERED: PROPOFOL 200 MG/20 ML VIAL ONE (09:50)
[2022-07-09] MEDS ORDERED: NEOSTIGMINE 3 MG/3 ML SYR 3 MG/3 ML SYRINGE ONE (09:50)
[2022-07-09] MEDS ORDERED: Glycopyrrolate 0.2 MG/ML 5 ML SYRINGE ONE (09:50)
[2022-07-09] MEDS ORDERED: Dexamethasone 4 mg/ml Vial ONE (10:08)
[2022-07-09] MEDS ORDERED: Bupivacaine HCl 0.5%/Epinephrine 1:200,000/PF 30 ml Vial ONE (10:08)
[2022-07-09 10:23] LABS: SARS-CoV-2 NAA Rapid Test Not Detected (NotDetected)
[2022-07-09] MEDS ORDERED: Iopamidol-370 76% 500 ML 1 ML ONE (10:46)
[2022-07-09] MEDS ORDERED: traMADol HCl 50 MG TAB PO PRN ×2 (10:51)
[2022-07-09] MEDS ORDERED: Senokot S 8.6-50 MG TAB PO PRN (10:51)
[2022-07-09] MEDS ORDERED: Bisacodyl 10 MG SUPP PR PRN (10:51)
[2022-07-09] MEDS ORDERED: Ondansetron ODT 4 MG TAB PO PRN (10:51)
[2022-07-09] MEDS: Sodium Chloride 0.9% 1,000 ML IV SCH ×2 (13:02→21:43)
[2022-07-09 15:42] VITALS: BMI 27.0
[2022-07-09] MEDS: Carvedilol 6.25 MG TAB PO SCH (16:49)
[2022-07-09] MEDS: Atorvastatin Calcium 20 MG TAB PO SCH (19:58)
[2022-07-09] MEDS: Aspirin 81 mg Enteric Coated Tablet PO SCH (19:58)
[2022-07-10 04:39] LABS: #Lymphocytes 0.9 thou/uL (1.20-3.40); #Monocytes 0.7 thou/uL (0.11-0.59); #Neutrophils 5.6 thou/uL (1.40-6.50); %Basophils 0.1 % (0.0-1.0); %Eosinophils 0.2 % (0.0-10.0); %Lymphocytes 12.3 % (21.0-51.0); %Monocytes 9.7 % (0.0-10.0); %Neutrophils 77.7 % (42.0-75.0); Hemoglobin 9.4 g/dL (14.0-18.0); Mean Corpuscular HGB CONC 33.2 g/dL (32.0-36.0); Mean Platelet Volume 8.8 fL (7.4-10.4); Platelet Count 137 thou/uL (130-400); RBC Distribution Width 13.4 % (11.5-14.5); Red Blood Cell (RBC) Count 2.76 mill/uL (4.70-6.10); White Blood Cell (WBC) Count 7.3 thou/uL (4.8-10.8)
[2022-07-10] MEDS ORDERED: FLU VACC QS2022-23(65YR UP)/PF 240 MCG/0.7 ML SYRINGE IM ONE (09:00)
[2022-07-10] MEDS ORDERED: Cranberry 500 MG Capsule PO SCH (09:00)
[2022-07-10] MEDS: Losartan 25 MG TAB PO SCH (10:02)
[2022-07-10] MEDS: Carvedilol 6.25 MG TAB PO SCH ×2 (10:03→17:42)
[2022-07-10] MEDS: traMADol HCl 50 MG TAB PO PRN (16:02)
[2022-07-10] MEDS: Atorvastatin Calcium 20 MG TAB PO SCH (21:09)
[2022-07-10] MEDS: Aspirin 81 mg Enteric Coated Tablet PO SCH (21:09)
[2022-07-11 04:08] LABS: #Eosinphils 0.1 thou/uL (0.0-0.7); #Monocytes 0.6 thou/uL (0.11-0.59); #Neutrophils 3.9 thou/uL (1.40-6.50); %Basophils 0.2 % (0.0-1.0); %Eosinophils 0.9 % (0.0-10.0); %Lymphocytes 18.4 % (21.0-51.0); %Neutrophils 69.5 % (42.0-75.0); Hemoglobin 9.5 g/dL (14.0-18.0); Mean Corpuscular HGB CONC 33.2 g/dL (32.0-36.0); Mean Corpuscular Hemoglobin 34.1 pg (27.0-31.0); Mean Platelet Volume 7.9 fL (7.4-10.4); Platelet Count 132 thou/uL (130-400); RBC Distribution Width 13.6 % (11.5-14.5); Red Blood Cell (RBC) Count 2.78 mill/uL (4.70-6.10); White Blood Cell (WBC) Count 5.6 thou/uL (4.8-10.8)
[2022-07-11] MEDS: traMADol HCl 50 MG TAB PO PRN (04:50)
[2022-07-11 08:14] VITALS: BP 132/62; TEMP 97.1
[2022-07-11] MEDS: Losartan 25 MG TAB PO SCH (08:48)
[2022-07-11] MEDS: Carvedilol 6.25 MG TAB PO SCH (08:51)
== END 2022-07-11 09:55 | disposition home or self-care (01) | DRG 863 ==
LOC: ERS 05:00 → 2NO 09:44 → SDC 09:45 → 2NO 10:51
PROVIDERS: ADMIT Thoracic Surgery (Cardiothoracic Vascular Surgery); ATTEND Thoracic Surgery (Cardiothoracic Vascular Surgery)
DX: K68.11 Postprocedural retroperitoneal abscess (principal); E78.5 Hyperlipidemia, unspecified; I10 Essential (primary) hypertension; Z79.899 Other long term (current) drug therapy
CPT/HCPCS: 36415; 75635; 76775; 76936; 80053; 83605; 83690; 85025; 85610; 85730; 86850; 86900; 86901; 93005; 96374; 96376; C1776; J1100; J1644; J2704; J2720; J3010; J7050; Q9967; U0002

== ENCOUNTER 2024-01-24 11:46 | Outpatient (CLI) | payer MEDICARE | END 2024-01-24 11:47 | disposition home or self-care (01) | LOC: CT 11:46 | DX: I71.40 Abdominal aortic aneurysm, without rupture, unspecified (principal); I72.8 Aneurysm of other specified arteries; I77.73 Dissection of renal artery; I71.20 Thoracic aortic aneurysm, without rupture, unspecified; N20.0 Calculus of kidney; N28.1 Cyst of kidney, acquired; J98.11 Atelectasis; K76.89 Other specified diseases of liver; Z98.890 Other specified postprocedural states | CPT/HCPCS: 74174; 82565; Q9967 ==